=== PATIENT | male | born 1995 | race Caucasian/White ===

== ENCOUNTER 2018-03-09 11:37 | Emergency (ER) | payer MEDICAID ==
[~2018-03-09] VITALS: Ht 170.2 cm; Wt 54.4 kg
[2018-03-09 11:37] VITALS: BP_SYST 148
[2018-03-09 13:12] VITALS: BP_SYST 136
== END 2018-03-09 13:12 | disposition home or self-care (01) ==
LOC: SED 11:37
DX: J02.9 Acute pharyngitis, unspecified (principal); H92.02 Otalgia, left ear
CPT/HCPCS: 36415; 86403; 87081; 99284

== ENCOUNTER 2019-03-23 21:55 | Emergency (ER) | payer MEDICAID ==
[~2019-03-23] VITALS: Ht 170.2 cm; Wt 65.8 kg
[2019-03-23 22:05] VITALS: BP_SYST 140
--- NOTE | 2019-03-24 00:40 | NUR ---
0040 - Patient to ER bed 4 to gown for evaluation. Side rails up. Report given to RADHA Herrera.
--- NOTE | 2019-03-24 00:45 | NUR ---
Patient AOx4, ambulatory, presents to ER with complaint of left arm numbness x1 day. Patient states that symptom began while at the gym lifting weights, radiated to right arm, then to bilateral legs lasting 10 minutes. Patient states no injury but SOB with symptoms. No other symptoms or complaints.
--- NOTE | 2019-03-24 00:46 | NUR ---
ANNIE Alfred at bedside for medical evaluation.
[2019-03-24 01:30] VITALS: BP_SYST 132
--- NOTE | 2019-03-24 01:30 | NUR ---
Patient given written and verbal discharge instructions and verbalizes understanding. ER MD discussed with patient the results and treatment provided. Patient in stable condition. ID arm band removed. No Rx given. Patient educated on pain management and to follow up with PMD. Pain Scale 0/10. Opportunity for questions provided and answered.
== END 2019-03-24 01:30 | disposition home or self-care (01) ==
LOC: SED 21:55
DX: R20.2 Paresthesia of skin (principal)
CPT/HCPCS: 99281